=== PATIENT | male | born 1945 | race Native Hawaiian/Other Pacific Islander ===

== ENCOUNTER 2020-08-18 13:10 | Emergency (ER) | payer OTHER ==
[~2020-08-18] VITALS: Ht 175.3 cm; Wt 68.0 kg
[2020-08-18 13:10] VITALS: BP 141/87; TEMP 97.5
[2020-08-18 13:57] LABS: PLATELET COUNT 203 K/uL (142-355)
[2020-08-18 14:02] LABS: POTASSIUM 3.9 mmol/L (3.6-5.2)
[2020-08-18] MEDS ORDERED: AMANTADINE100 MG PO (15:07)
[2020-08-18] MEDS ORDERED: AMLODIPINE BESYLATE PO (15:07)
[2020-08-18] MEDS ORDERED: LIPITOR20 MG PO (15:08)
[2020-08-18] MEDS ORDERED: CARB25TA29 PO ×2 (15:09→15:10)
[2020-08-18] MEDS ORDERED: FINASTERIDE5 MG PO (15:10)
[2020-08-18] MEDS ORDERED: ESCI10TA PO (15:10)
[2020-08-18] MEDS ORDERED: HYDR50CA21 PO (15:11)
[2020-08-18] MEDS ORDERED: LISI5TAB10 PO (15:12)
[2020-08-18] MEDS ORDERED: LEVO0.0723 PO (15:12)
[2020-08-18] MEDS ORDERED: TRAMADOL HYDROC50 MG PO (15:13)
[2020-08-18] MEDS ORDERED: OXYB5TAB56 PO (15:13)
[2020-08-18] MEDS ORDERED: POLYETHYLE17 GM/SCO1 PO (15:14)
[2020-08-18] MEDS ORDERED: QUETIAPINE25 MG PO (15:15)
[2020-08-18] MEDS ORDERED: RIVASTIGMINE3 MG PO (15:15)
[2020-08-18] MEDS ORDERED: SENNA PLUS 50-81 CAP PO (15:16)
[2020-08-18] MEDS ORDERED: TAMSULOSIN0.4 MG PO (15:17)
== END 2020-08-18 14:38 | disposition other institution (70) ==
LOC: ED 13:21
PROVIDERS: Family Medicine
DX: F03.91 Unspecified dementia, unspecified severity, with behavioral disturbance (principal); R44.2 Other hallucinations; Z11.59 Encounter for screening for other viral diseases; Z04.6 Encounter for general psychiatric examination, requested by authority
CPT/HCPCS: 80053; 85027; 87635; 93005; 99283; 99285; U0003

== ENCOUNTER 2020-09-13 22:07 | Emergency (ER) | payer OTHER ==
[~2020-09-13] VITALS: Ht 175.3 cm; Wt 68.0 kg
[~2020-09-13 22:07] MED LIST: AMANTADINE100 MG PO; AMLODIPINE BESYLATE PO; CARB25TA29 PO; DIVA125C PO; ESCI10TA PO; FINASTERIDE5 MG PO; HYDR50CA21 PO; LEVO0.0723 PO; LIPITOR20 MG PO; LISI5TAB10 PO; OXYB5TAB56 PO; POLYETHYLE17 GM/SCO1 PO; QUETIAPINE25 MG PO; RIVASTIGMINE3 MG PO; SENNA PLUS 50-81 CAP PO; TAMSULOSIN0.4 MG PO; TRAMADOL HYDROC50 MG PO; TRAZ50TA36 PO
[2020-09-13 22:27] LABS: PLATELET COUNT 211 K/uL (142-355)
[2020-09-13 22:33] LABS: POTASSIUM 3.5 mmol/L (3.6-5.2)
[2020-09-13 23:25] VITALS: BP 110/88; TEMP 98.7
[2020-09-14] MEDS ORDERED: AMANTADINE100 MG PO (00:51)
[2020-09-14] MEDS ORDERED: LIPITOR20 MG PO (00:54)
[2020-09-14] MEDS ORDERED: AMLODIPINE BESYLATE PO (00:54)
[2020-09-14] MEDS ORDERED: DIVA125C PO ×2 (00:58→01:53)
[2020-09-14] MEDS ORDERED: ESCITALOPRAM20 MG PO (00:59)
[2020-09-14] MEDS ORDERED: FINASTERIDE5 MG PO (01:02)
[2020-09-14] MEDS ORDERED: EUTHYROX75 MCG PO (01:03)
[2020-09-14] MEDS ORDERED: CARB25TA29 PO ×2 (01:06→01:07)
[2020-09-14] MEDS ORDERED: LISI5TAB10 PO (01:11)
[2020-09-14] MEDS ORDERED: OXYB5TAB56 PO (01:12)
[2020-09-14] MEDS ORDERED: POLYETHYLENE GL17 GM PO (01:15)
[2020-09-14] MEDS ORDERED: SENNA PLUS 50-81 CAP PO (01:16)
[2020-09-14] MEDS ORDERED: TAMSULOSIN0.4 MG PO (01:20)
[2020-09-14] MEDS ORDERED: TRAZ50TA36 PO (01:24)
[2020-09-14] MEDS ORDERED: ACETAMINOPHEN PO (01:28)
[2020-09-14] MEDS ORDERED: STOOL SOFTNR100 MG PO (01:30)
[2020-09-14] MEDS ORDERED: TRAMADOL HYDROC50 MG PO (01:35)
[2020-09-14] MEDS ORDERED: MAGNSUS68 PO (01:37)
== END 2020-09-13 23:25 | disposition still patient (30) ==
LOC: ED 22:07
PROVIDERS: Hospitalist
DX: R44.2 Other hallucinations (principal); F41.8 Other specified anxiety disorders; G20 Parkinson's disease; F02.81 Dementia in other diseases classified elsewhere, unspecified severity, with behavioral disturbance; Z04.6 Encounter for general psychiatric examination, requested by authority
CPT/HCPCS: 36415; 80053; 80164; 85027; 99283

== ENCOUNTER 2020-09-27 20:00 | Inpatient (IN) | payer OTHER ==
[~2020-09-27] VITALS: Ht 170.2 cm; Wt 56.7 kg
[~2020-09-27 20:00] MED LIST changes: +ACETAMINOPHEN PO; +ESCITALOPRAM20 MG PO; +EUTHYROX75 MCG PO; +MAGNSUS68 PO; +POLYETHYLENE GL17 GM PO; +STOOL SOFTNR100 MG PO
[2020-09-27 22:00] VITALS: BP 100/50; TEMP 99
[2020-09-27 23:00] VITALS: BP 122/65
[2020-09-28] VITALS (23 sets, daily range): BP systolic 109–145; BP diastolic 53–86; TEMP 98.7–100.3; Ht 170.2 cm; Wt 56.7 kg
[2020-09-29] VITALS (21 sets, daily range): BP systolic 125–158; BP diastolic 54–102; TEMP 97.8–100.2
[2020-09-30] VITALS (24 sets, daily range): BP systolic 135–1152; BP diastolic 63–97; TEMP 98.4–102.3
[2020-09-30 05:26] LABS: PLATELET COUNT 206 K/uL (142-355)
[2020-09-30 05:58] LABS: POTASSIUM 3.6 mmol/L (3.6-5.2)
[2020-09-30 09:24] LABS: PLATELET COUNT 205 K/uL (142-355)
[2020-09-30 09:32] LABS: POTASSIUM 3.6 mmol/L (3.6-5.2)
[2020-10-01] VITALS (23 sets, daily range): BP systolic 122–159; BP diastolic 62–111; TEMP 97.9–98.5
[2020-10-01 09:07] LABS: PLATELET COUNT 165 K/uL (142-355)
[2020-10-01 09:20] LABS: POTASSIUM 3.3 mmol/L (3.6-5.2)
[2020-10-02] VITALS (25 sets, daily range): BP systolic 126–160; BP diastolic 65–95; TEMP 97.5–99.5
[2020-10-02 04:17] LABS: PLATELET COUNT 182 K/uL (142-355)
[2020-10-02 04:30] LABS: POTASSIUM 3.5 mmol/L (3.6-5.2)
[2020-10-03] VITALS (23 sets, daily range): BP systolic 101–151; BP diastolic 55–84; TEMP 98.3–99.7
[2020-10-03 08:19] LABS: PLATELET COUNT 238 K/uL (142-355)
[2020-10-03 08:56] LABS: POTASSIUM 4.3 mmol/L (3.6-5.2)
[2020-10-04] VITALS (24 sets, daily range): BP systolic 119–181; BP diastolic 31–88; TEMP 98–99
[2020-10-04 17:01] LABS: PLATELET COUNT 275 K/uL (142-355)
[2020-10-04 17:15] LABS: POTASSIUM 4.5 mmol/L (3.6-5.2)
[2020-10-05] VITALS (23 sets, daily range): BP systolic 135–191; BP diastolic 70–94; TEMP 97.8–99.9
[2020-10-05 05:43] LABS: POTASSIUM 4.8 mmol/L (3.6-5.2)
[2020-10-05 05:58] LABS: PLATELET COUNT 233 K/uL (142-355)
[2020-10-06] VITALS (17 sets, daily range): BP systolic 140–200; BP diastolic 59–91; TEMP 97.6–99
[2020-10-06 10:25] LABS: POTASSIUM 3.9 mmol/L (3.6-5.2)
[2020-10-06 10:29] LABS: PLATELET COUNT 302 K/uL (142-355)
== END 2020-10-06 18:45 | disposition short-term general hospital (02) | DRG 177 ==
LOC: PCU 20:00
PROVIDERS: Internal Medicine Endocrinology, Diabetes & Metabolism; ADMIT Hospitalist; ATTEND Internal Medicine
DX: U07.1 COVID-19 (principal); J18.8 Other pneumonia, unspecified organism; J96.01 Acute respiratory failure with hypoxia; G92 Toxic encephalopathy; F02.81 Dementia in other diseases classified elsewhere, unspecified severity, with behavioral disturbance; E87.0 Hyperosmolality and hypernatremia; G20 Parkinson's disease; N40.0 Benign prostatic hyperplasia without lower urinary tract symptoms; I10 Essential (primary) hypertension; E03.8 Other specified hypothyroidism; E78.49 Other hyperlipidemia; R13.19 Other dysphagia
CPT/HCPCS: 36415; 80053; 80202; 81000; 82550; 84484; 85007; 85027; 87040; 93005; 94760; J0132; J1100; J1650; J1956; J2060; J2270; J2405; J2543; J3370; J3490

== ENCOUNTER 2020-10-06 13:30 | Inpatient (IN) | payer OTHER ==
[~2020-10-06] VITALS: Ht 170.2 cm; Wt 50.1 kg
[2020-10-06 20:00] VITALS: BP 165/82; TEMP 97.7
[2020-10-07 07:56] VITALS: BP 155/79; TEMP 98.2
[2020-10-07 19:52] VITALS: BP 140/92; TEMP 98.9
[2020-10-08 08:00] VITALS: BP 160/78; TEMP 100.4
[2020-10-08 20:00] VITALS: BP 153/95; TEMP 96.2
[2020-10-09 08:00] VITALS: BP 144/81; TEMP 97.9
[2020-10-09 20:00] VITALS: BP 151/79; TEMP 99.1
[2020-10-10 08:00] VITALS: BP 172/91; TEMP 97.9
[2020-10-10 20:00] VITALS: BP 144/82; TEMP 98
[2020-10-11 20:00] VITALS: BP 150/87; TEMP 98.1
[2020-10-12 08:00] VITALS: BP 136/70; TEMP 101.7
[2020-10-12 20:00] VITALS: BP 73/50; TEMP 100.5
[2020-10-13 08:00] VITALS: BP 160/76; TEMP 101.6
[2020-10-13 20:00] VITALS: BP 160/70; TEMP 97.8
[2020-10-14 07:43] VITALS: BP 101/56; TEMP 98.5
[2020-10-14 20:00] VITALS: BP 64/44; TEMP 99.9
== END 2020-10-15 04:47 | disposition expired | DRG 56 ==
LOC: MED/SURG 13:30
PROVIDERS: ADMIT Internal Medicine Endocrinology, Diabetes & Metabolism; ATTEND Internal Medicine
DX: G20 Parkinson's disease (principal); U07.1 COVID-19; J18.8 Other pneumonia, unspecified organism; F02.80 Dementia in other diseases classified elsewhere, unspecified severity, without behavioral disturbance, psychotic disturbance, mood disturbance, and anxiety
CPT/HCPCS: 94760; J2060; J2270